=== PATIENT | female | born 1990 | race Caucasian/White ===

== ENCOUNTER 2016-09-15 16:39 | Emergency (ER) | payer OTHER ==
[~2016-09-15] VITALS: Ht 149.9 cm; Wt 63.5 kg
[2016-09-15 16:55] VITALS: BP 120/73
--- NOTE | 2016-09-15 17:13 | PHYS DOC ---
Past Medical History Past Medical History: No Pertinent History Past Surgical History: No Surgical History Alcohol Use: Occasionally Drug Use: Marijuana Adult General Chief Complaint Chief Complaint: LACERATION/AVULSION HPI HPI Patient is a 26 year old female who presents with right pinky finger laceration and possible foreign object. Patient states she was changing a light bulb when it broke. Patient is right-handed. Review of Systems Review of Systems Constitutional: Denies fever or chills [] Eyes: Denies change in visual acuity, redness, or eye pain [] Musculoskeletal: Denies back pain or joint pain [] Integument: right pinky finger laceration and possible foreign object Neurologic: Denies headache, focal weakness or sensory changes [] Endocrine: Denies polyuria or polydipsia [] Physical Exam Physical Exam Constitutional: Well developed, well nourished, no acute distress, non-toxic appearance. [] HENT: Normocephalic, atraumatic, bilateral external ears normal, oropharynx moist, no oral exudates, nose normal. [] Skin: Right pinky finger dorsal aspect mid phalange a with a superficial bruising and laceration approximately 3 of them each 0.2 x 0.1 cm. Full range of motion to the right pinky finger including flexion and extension of the finger at the MIP PIP and DIP joints. +2 right radial pulse. Adequate ulnar sensation to the right pinky finger. Cap refill less than 2 seconds the right pinky finger. There is no obvious foreign object noted on the right pinky finger Back: No tenderness, no CVA tenderness. [] Extremities: No tenderness, no cyanosis, no clubbing, ROM intact, no edema. [] Neurologic: Alert and oriented X 3, normal motor function, normal sensory function, no focal deficits noted. [] Psychologic: Affect normal, judgement normal, mood normal. [] EKG EKG [] Radiology/Procedures Radiology/Procedures [] Course & Med Decision Making Course & Med Decision Making Pertinent Labs and Imaging studies reviewed. (See chart for details) Patient is in the ED with superficial lacerations to the right pinky finger and possible foreign object specifically bulb pieces that occurred while changing a light bulb. There is no obvious foreign object noted on patient's superficial lacerations. She was informed if there is any foreign object in the area the foreign objects will make their way out on their own but we do not go digging for objects in the tissue because we cause more damage than good. Recommended Neosporin to the area. Instructed to keep the area clean and dry. Risk of infection explained. Tetanus given. Follow-up with PCP in 1-2 weeks as needed. Dragon Disclaimer Dragon Disclaimer This electronic medical record was generated, in whole or in part, using a voice recognition dictation system. Departure Departure Impression: Primary Impression: Laceration of little finger Disposition: HOME, SELF-CARE Condition: STABLE Referrals: NO PCP (PCP) Follow-up with your doctor in 1-2 weeks as needed Patient Instructions: Facial Laceration Additional Instructions: You were seen for superficial lacerations to the right pinky finger. If there is any foreign object to the right pinky finger they will make their way out. We do not dig for foreign objects from peoples tissue because it causes more damage than good. Keep the affected area clean and dry. You ran a slight risk of infection considering possibility of a foreign object to the area. Apply Neosporin to the area twice a day. Monitor the area for signs and symptoms of infection including increased redness, uncontrolled drainage, yellow drainage, or warmth to the finger and return to the ED if they occur. Follow-up with your doctor in 1-2 weeks as needed. Problem Qualifiers Primary Impression: Laceration of little finger Encounter type: initial encounter Qualified Codes: S61.218A - Laceration without foreign body of other finger without damage to nail, initial encounter ALLI COLUNGA APRN Sep 15, 2016 17:13
[2016-09-15] MEDS ORDERED: DIPHTH,PERTUSS(ACELL),TET TOX 0.5 ML DISP.SYRIN. VAX IM ONE (17:30)
== END 2016-09-15 17:28 | disposition home or self-care (01) ==
LOC: ER 16:39
DX: S61.216A Laceration without foreign body of right little finger without damage to nail, initial encounter (principal); F12.10 Cannabis abuse, uncomplicated; W25.XXXA Contact with sharp glass, initial encounter; Y93.89 Activity, other specified; Y92.89 Other specified places as the place of occurrence of the external cause; Y99.8 Other external cause status
CPT/HCPCS: 81025; 90471; 90715; 99283-25